=== PATIENT | female | born 1980 | race Caucasian/White ===

== ENCOUNTER 2016-08-25 18:17 | Emergency (ER) | payer OTHER ==
[~2016-08-25] VITALS: Ht 165.1 cm; Wt 84.0 kg
[~2016-08-25 18:17] MED LIST: ACET500C5 PO; BENZ100C70 PO; D-ME473S18 PO; IBUP800T25 PO; MECL25TA2 PO; NITR-58 PO; ONDA4TAB35 PO; PHEN-538 PO; SERT50TA6 PO; TYL500 PO
[2016-08-25 18:25] VITALS: Ht 165.1 cm; Wt 84.0 kg
[2016-08-25] MEDS ORDERED: KETOROLAC 30 MG INJ IM STA (20:36)
[2016-08-25 20:59] LABS: URINE BLOOD (Dip) POC Negative (NEGATIVE)
[2016-08-25] MEDS ORDERED: IBUP-1542 PO (21:35)
[2016-08-25] MEDS ORDERED: EXCED PO (21:35)
[2016-08-25] MEDS ORDERED: CLIN-73 PO (21:36)
--- NOTE | 2016-08-25 21:45 | ERD ---
ER Documentation Chief Complaint Date/Time DATE: 08/25/16 TIME: 21:38 Chief Complaint Complains of a headache x3 days ago HPI Patient is a 36-year-old female with a past medical history of migraines who presents to the emergency department with a headache 3 days. Patient states her current pain level is a 7 out of 10. Patient states that the pain is on the left side of her head radiating from her frontal to occipital region. Patient states that her headache has been getting gradually worse. She denies any sudden onset. Patient denies any nausea, vomiting, photophobia, blurry vision, loss of consciousness. Patient states that she took Tylenol 5 PM with some alleviation of symptoms. Patient denies any chest pain, shortness breath, diaphoresis, arm pain, leg pain. Patient also presenting with concerns of possible skin infection to her abdomen. Patient reports circular area of erythema. Area is tender to palpation. Patient denies any drainage or active bleeding. Patient denies any fever, chills. ROS All systems reviewed and are negative except as per history of present illness. Medications Home Meds Active Scripts Clindamycin Hcl* (Clindamycin Hcl*) 300 Mg Capsule, 300 MG PO Q8, #10 CAP Prov:RORY MCLAIN PA-C 08/25/16 Acetaminophen/Aspirin/Caffeine* (Excedrin*) 1 Tab Tab, 1 TAB PO BID, #20 TAB Prov:RORY MCLAIN PA-C 08/25/16 Ibuprofen* (Motrin*) 600 Mg Tab, 600 MG PO Q6, #30 TAB Prov:RORY MCLAIN PA-C 08/25/16 Phenazopyridine Hcl* (Pyridium*) 200 Mg Tab, 200 MG PO TID Y for URINARY PAIN, # 6 TAB Prov:NAHID CALZADA NP 05/29/16 Nitrofurantoin Monohyd Macrocr* (Macrobid*) 100 Mg Capsr, 100 MG PO BID for 7 Days, CAP Prov:NAHID CALZADA NP 05/29/16 Acetaminophen* (Tylenol*) 500 Mg Tab, 1000 MG PO Q8H Y for PAIN AND OR ELEVATED TEMP for 3 Days, TAB Prov:JAMI MASTERS 05/11/16 Dextromethorphan Hb-Promethazine Hcl (Promethazine DM Syrup) 473 Ml Syrup, 10 ML PO Q6H Y for COUGH, #4 OZ Prov:JAMI MASTERS 05/11/16 Benzonatate* (Tessalon Perle*) 100 Mg Capsule, 100 MG PO Q8H Y for COUGH for 3 Days, CAP Prov:JAMI MASTERS 05/11/16 Ibuprofen* (Motrin*) 800 Mg Tab, 800 MG PO Q6H Y for PAIN AND OR ELEVATED TEMP, #30 TAB Prov:ANTOINETTE US DO 04/24/16 Meclizine Hcl* (Antivert*) 25 Mg Tablet, 25 MG PO Q6H Y for dizziness, #20 TAB Prov:JAMI MASTERS 10/04/15 Acetaminophen* (Tylophen*) 500 Mg Capsule, 1 CAP PO Q6H Y for PAIN AND OR ELEVATED TEMP, #20 CAP Prov:JAMI MASTERS 10/04/15 Ondansetron Hcl* (Zofran* ODT) 4 mg -ODT Tab.disper, 4 MG PO Q6 Y for NAUSEA AND /OR VOMITING, #30 TAB Prov:LAYLA MARIE MD 08/09/15 Reported Medications Sertraline Hcl* (Sertraline Hcl*) 50 Mg Tablet, 50 MG PO DAILY, #30 TAB 08/09/15 Allergies Allergies: Coded Allergies: Penicillins (Verified Allergy, Unknown, 03/23/15) PMhx/Soc History of Surgery: Yes (hysterectomy) Anesthesia Reaction: No Hx Neurological Disorder: No Hx Cardiac Disorders: Yes (HTN) Hx Psychiatric Problems: No Hx Miscellaneous Medical Probl: Yes (Migraines) Hx Alcohol Use: No Hx Substance Use: No Hx Tobacco Use: No Physical Exam Vitals Vital Signs Date Time Temp Pulse Resp B/P Pulse Ox O2 Delivery O2 Flow Rate FiO2 08/25/16 21:56 97.9 74 18 122/72 100 Room Air 08/25/16 18:25 98.3 82 20 120/75 100 Physical Exam GENERAL: Well-developed, well-nourished female. Appears in no acute distress. HEAD: Normocephalic, atraumatic. No deformities or ecchymosis. Left frontal and occipital region tender to palpation EYE: Pupils equal, round, and reactive to light. EOMs intact. No conjunctival erythema. No scleral icterus. No eye discharge. ENT: External ear without any masses or tenderness. Auditory canals clear bilaterally. TM visualized bilaterally, non-erythematous, non-bulging. Nasal mucosa pink with no discharge. Oropharynx is pink without any tonsillar erythema or exudates. No uvula deviation. No kissing tonsils. NECK: Supple. No lymphadenopathy or thyromegaly. No meningismus. Range of motion of the neck. Tender to palpation of the bilateral trapezius muscles. LUNG: Clear to auscultation bilaterally. No rhonchi, wheezing, rales or coarse breath sounds. HEART: Regular rate and rhythm. No murmurs, rubs or gallops. ABDOMEN: Soft, nontender, and nondistended. Positive bowel sounds in all four quadrants. No rebound tenderness, no guarding. (-) McBurney's point tenderness. L CVA tenderness EXTREMITES: Equal pulses bilaterally. No peripheral clubbing, cyanosis or edema. No unilateral leg swelling. NEUROLOGIC:. No dysmetria on [id number] test. Steady gait. No pronator drift. Negative Brudzinski sign. Negative Kernig's sign SKIN: Normal color. Warm and dry. 2 cm circular abscess with surrounding erythema to right lower abdomen. +Swelling. Tender to palpation. No area of fluctuance. Results 24 hrs Laboratory Tests Test 08/25/16 21:00 Bedside Urine Blood Negative Bedside Urine Glucose (UA) Negative Bedside Urine Ketones (LAB) Negative Bedside Urine Leukocyte Esterase (L Negative Bedside Urine Nitrite (LAB) Negative Bedside Urine Protein (LAB) Negative Bedside Urine pH (LAB) 7.0 Current Medications Medications (Trade) Dose Ordered Sig/Teodoro Route PRN Reason Start Time Stop Time Status Last Admin Dose Admin Ketorolac Tromethamine (Toradol) 30 mg ONCE STAT IM 08/25/16 20:36 08/25/16 20:37 DC 08/25/16 20:57 Procedures/MDM MEDICAL DECISION MAKING: Patient is a 36-year-old female with PMHX of migraines who presents with a headache 3 days. Patient reported history of migraines. Vital signs were reviewed. Patient was afebrile. Patient is not hypoxic. Patient stated that current headache was similar to headaches in the past. Patient denied any fevers, neck stiffness, jaw claudication, visual changes or LOC. Full neurological exam was normal. Urine dip was negative for infection or hematuria. Low suspicion for UTI or pyelonephritis. Given these findings, the patients presentation is most consistent with this is migraine vs tension headache. Upon receiving Toradol IM here in the ED, patient reported improvement in pain. I have a much lower clinical concern for intracranial hemorrhage, meningitis, encephalitis, temporal arteritis, benign intracranial hypertension, intracranial mass, glaucoma, preeclampsia, sinusitis, cluster headache. Patient's physical exam findings also suggest abscess to right lower quadrant. The patient will be started antibiotics at this time. Warm compresses advised. Patient should return in 2 days for wound recheck and possible I&D at that time. PRESCRIPTIONS: Ibuprofen, Excedrin, clindamycin DISCHARGE: At this time, patient is stable for discharge and outpatient management. I have encouraged the patient to hydrate well. I have advised patient to return in 2 days for wound recheck and possible I&D at that time.. If she has headaches persist, patient may need to see a neurologist for further examinations and management. I have instructed the patient to promptly return to the ER at any time for any new or worsening symptoms including increased increased pain, fever , nausea, vomiting, numbness, neck stiffness, visual changes, weakness or LOC. The patient and/or family expressed understanding of and agreement with this plan. All questions were answered. Home care instructions were provided. Departure Diagnosis: Primary Impression: Headache Headache type: unspecified Headache chronicity pattern: unspecified pattern Intractability: not intractable Qualified Code: R51 - Nonintractable headache, unspecified chronicity pattern, unspecified headache type Additional Impression: Abscess Condition: Stable Patient Instructions: Abscess, Antiobiotic Treatment Only, Headache, Unspecified Additional Instructions: Follow-up in 2 days for wound recheck. May need an incision and drainage at that time. Return sooner for any worsening symptoms including fever, chills, nausea, vomiting, redness, warmth, swelling or severe pain. Warm compresses advised to affected area. Call your primary care doctor TOMORROW for an appointment during the next 1-2 days.See the doctor sooner or return here if your condition worsens before your appointment time. RORY MCLAIN PA-C Aug 25, 2016 21:45
[2016-08-25 21:56] VITALS: BP 122/72; PULSE 74; RESP 18; TEMP 97.9
== END 2016-08-25 21:56 | disposition home or self-care (01) ==
LOC: FTE 18:17
DX: R51 Headache (principal); L02.211 Cutaneous abscess of abdominal wall; I10 Essential (primary) hypertension; J45.909 Unspecified asthma, uncomplicated
CPT/HCPCS: 81003; 96372; J1885; Z7502

== ENCOUNTER 2016-12-14 14:32 | Emergency (ER) | payer OTHER ==
[~2016-12-14] VITALS: Ht 162.6 cm; Wt 83.0 kg
[~2016-12-14 14:32] MED LIST changes: +CLIN-73 PO; +EXCED PO; +IBUP-1542 PO
[2016-12-14 14:35] VITALS: Ht 162.6 cm; Wt 83.0 kg
[2016-12-14] MEDS ORDERED: ONDANSETRON (ODT) 4 MG TAB ODT STA (16:13)
[2016-12-14] MEDS ORDERED: ACETAMINOPHEN 325 MG TAB PO ONE (16:30)
[2016-12-14] MEDS ORDERED: MECLIZINE 12.5 MG TAB PO ONE (16:30)
[2016-12-14] MEDS ORDERED: MECL12.574 PO (16:55)
[2016-12-14] MEDS ORDERED: ONDA4TAB14 PO (16:55)
--- NOTE | 2016-12-14 16:58 | ERD ---
ER Documentation Chief Complaint Date/Time DATE: 12/14/16 TIME: 16:58 Chief Complaint THOMPSON, dizziness, nausea started today HPI Patient is a 36-year-old female with asthma presents with multiple complaints. She is complaining of nausea and dizziness. She also has a pain in her throat and pain in the left ear. The symptoms have been there for the past 2 days. The pain is constant. She tried ibuprofen. She denies fevers. She does not currently have a primary doctor. Upon review of old medical records the patient has multiple visits to the ER for various complaints. ROS All systems reviewed and are negative except as per history of present illness. Medications Home Meds Active Scripts Ondansetron (Ondansetron Odt) 4 Mg Tab.rapdis, 4 MG PO Q6H Y for NAUSEA AND/OR VOMITING, #10 TAB Prov:LAYLA MARIE MD 12/14/16 Meclizine Hcl* (Antivert*) 12.5 Mg Tab, 12.5 MG PO Q6H Y for DIZZINESS, #20 TAB Prov:LAYLA MARIE MD 12/14/16 Clindamycin Hcl* (Clindamycin Hcl*) 300 Mg Capsule, 300 MG PO Q8, #10 CAP Prov:RORY MCLAIN PA-C 08/25/16 Acetaminophen/Aspirin/Caffeine* (Excedrin*) 1 Tab Tab, 1 TAB PO BID, #20 TAB Prov:RORY MCLAIN PA-C 08/25/16 Ibuprofen* (Motrin*) 600 Mg Tab, 600 MG PO Q6, #30 TAB Prov:RORY MCLAIN PA-C 08/25/16 Phenazopyridine Hcl* (Pyridium*) 200 Mg Tab, 200 MG PO TID Y for URINARY PAIN, # 6 TAB Prov:NAHID CALZADA NP 05/29/16 Nitrofurantoin Monohyd Macrocr* (Macrobid*) 100 Mg Capsr, 100 MG PO BID for 7 Days, CAP Prov:NAHID CALZADA NP 05/29/16 Acetaminophen* (Tylenol*) 500 Mg Tab, 1000 MG PO Q8H Y for PAIN AND OR ELEVATED TEMP for 3 Days, TAB Prov:JAMI MASTERS 05/11/16 Dextromethorphan Hb-Promethazine Hcl (Promethazine DM Syrup) 473 Ml Syrup, 10 ML PO Q6H Y for COUGH, #4 OZ Prov:JAMI MASTERS 05/11/16 Benzonatate* (Tessalon Perle*) 100 Mg Capsule, 100 MG PO Q8H Y for COUGH for 3 Days, CAP Prov:JAMI MASTERS 05/11/16 Ibuprofen* (Motrin*) 800 Mg Tab, 800 MG PO Q6H Y for PAIN AND OR ELEVATED TEMP, #30 TAB Prov:MAGENJOANDANETTE LOPEZ 04/24/16 Meclizine Hcl* (Antivert*) 25 Mg Tablet, 25 MG PO Q6H Y for dizziness, #20 TAB Prov:JAMI MASTERS 10/04/15 Acetaminophen* (Tylophen*) 500 Mg Capsule, 1 CAP PO Q6H Y for PAIN AND OR ELEVATED TEMP, #20 CAP Prov:JAMI MASTERS 10/04/15 Ondansetron Hcl* (Zofran* ODT) 4 mg -ODT Tab.disper, 4 MG PO Q6 Y for NAUSEA AND /OR VOMITING, #30 TAB Prov:LAYLA MARIE MD 08/09/15 Reported Medications Sertraline Hcl* (Sertraline Hcl*) 50 Mg Tablet, 50 MG PO DAILY, #30 TAB 08/09/15 Allergies Allergies: Coded Allergies: Penicillins (Verified Allergy, Unknown, 03/23/15) PMhx/Soc History of Surgery: Yes (hysterectomy) Anesthesia Reaction: No Hx Neurological Disorder: No Hx Cardiac Disorders: Yes (HTN) Hx Psychiatric Problems: No Hx Miscellaneous Medical Probl: Yes (Migraines) Hx Alcohol Use: No Hx Substance Use: No Hx Tobacco Use: No Smoking Status: Never smoker FmHx Family History: No diabetes Physical Exam Vitals Vital Signs Date Time Temp Pulse Resp B/P Pulse Ox O2 Delivery O2 Flow Rate FiO2 12/14/16 14:35 98.7 83 15 115/57 97 Physical Exam Const: Mild distress Head: Atraumatic Eyes: Normal Conjunctiva ENT: No signs of obvious pharyngitis, peritonsillar abscess, or stridor over the neck, no signs of otitis media Neck: Full range of motion..~ No meningismus. Resp: Clear to auscultation bilaterally Cardio: Regular rate and rhythm, no murmurs Abd: Soft, non tender, non distended. Normal bowel sounds Skin: No petechiae or rashes Back: No midline or flank tenderness Ext: No cyanosis, or edema Neur: Awake and alert, cranial nerves II through XII intact, no slurred speech Psych: Depressed affect Results 24 hrs Current Medications Medications (Trade) Dose Ordered Sig/Teodoro Route PRN Reason Start Time Stop Time Status Last Admin Dose Admin Acetaminophen (Tylenol Tab) 650 mg ONCE ONCE PO 12/14/16 16:30 12/14/16 16:31 DC 12/14/16 16:29 Ondansetron HCl (Zofran Odt) 4 mg ONCE STAT ODT 12/14/16 16:13 12/14/16 16:14 DC 12/14/16 16:29 Meclizine HCl (Antivert) 25 mg ONCE ONCE PO 12/14/16 16:30 12/14/16 16:31 DC 12/14/16 16:28 Procedures/MDM EKG read by me: Rate/Rhythm: Regular rate and rhythm at a normal rate Intervals: Normal Impression: No evidence of ischemia or arrhythmia test is negative. Patient is a 36-year-old female presents with various complaints. At this point I see no signs of obvious serous bacterial infection. I doubt stroke or intracranial mass or hemorrhage. I believe the risk of doing a CT scan of the brain outweigh the benefits. There is no sign of ischemia on the EKG I doubt acute coronary syndrome. The patient was given Tylenol and meclizine as well as Zofran. A prescription for meclizine and Zofran for systematic relief will be given. I told the patient that she needs to obtain a primary doctor as she has multiple visits to the ER for various complaints. She should follow-up the local clinics within 24-48 hours for reevaluation. Departure Diagnosis: Primary Impression: Headache Headache type: unspecified Headache chronicity pattern: acute headache Intractability: not intractable Qualified Code: R51 - Acute nonintractable headache, unspecified headache type Additional Impressions: Dizziness Nausea Condition: Fair Patient Instructions: Self-Care for Headaches, Nausea, Dizziness, Unk Cause Additional Instructions: Llame al doctor MAANA y victor hugo pablito MELANIE PARA DENTRO DE 1-2 PURDY.Dgale a la secretaria que nosotros le instruimos hacer esta melanie.Avise o llame si camacho condicin se empeora antes de la melanie. Regresa aqui si peor o no mejor. LAYLA MARIE MD December 14, 2016 16:58
== END 2016-12-14 17:11 | disposition home or self-care (01) ==
LOC: FTE 14:32
DX: R51 Headache (principal); R42 Dizziness and giddiness; R11.0 Nausea; I10 Essential (primary) hypertension; J45.909 Unspecified asthma, uncomplicated
CPT/HCPCS: 93005; Z7502; Z7610

== ENCOUNTER 2017-04-03 09:07 | Emergency (ER) | payer OTHER ==
[~2017-04-03] VITALS: Wt 83.0 kg
[~2017-04-03 09:07] MED LIST changes: +MECL12.574 PO; +ONDA4TAB14 PO
[2017-04-03] MEDS ORDERED: SOD CHLORIDE 0.9% 1,000 ML IV STA (09:55)
[2017-04-03] MEDS ORDERED: KETOROLAC 15 MG INJ IV STA (09:55)
[2017-04-03] MEDS ORDERED: ONDANSETRON 4 MG INJ IV STA (09:55)
[2017-04-03] MEDS ORDERED: morphine 4 MG/ML VIAL IV STA (09:55)
[2017-04-03 10:44] LABS: BASOPHILS % 0.4 % (0.0-2.0); EOSINOPHILS # 0.3 10^3/ul (0.0-0.5); EOSINOPHILS % 3.7 % (0.0-7.0); HEMATOCRIT 43.6 % (37.0-47.0); HEMOGLOBIN 14.5 g/dl (12.0-16.0); LYMPHOCYTES # 1.9 10^3/ul (0.8-2.9); LYMPHOCYTES % 21.2 % (15.0-51.0); MEAN CORPUSCULAR HEMOGLOBIN 28.9 pg (29.0-33.0); MEAN CORPUSCULAR HGB CONC 33.3 g/dl (32.0-37.0); MEAN PLATELET VOLUME 10.7 fl (7.4-10.4); MONOCYTE # 0.6 10^3/ul (0.3-0.9); NEUTROPHIL # 6.2 10^3/ul (1.6-7.5); NEUTROPHILS % 68.4 % (39.0-77.0); PLATELET COUNT 197 10^3/UL (140-415); RED BLOOD COUNT 5.01 10^6/ul (4.20-5.40); RED CELL DISTRIBUTION WIDTH 12.9 % (11.5-14.5); WHITE BLOOD COUNT 9.1 10^3/ul (4.8-10.8)
[2017-04-03 11:04] LABS: ADD UMIC NO; UR ASCORBIC ACID NEGATIVE (NEGATIVE); UR BILIRUBIN (Dip) NEGATIVE (NEGATIVE); UR BLOOD (Dip) NEGATIVE (NEGATIVE); UR CLARITY SLIGHTLY CLOUDY (CLEAR); UR COLOR YELLOW (YELLOW); UR GLUCOSE (Dip) NEGATIVE (NEGATIVE); UR KETONES (Dip) NEGATIVE (NEGATIVE); UR LEUKOCYTE ESTERASE (Dip) NEGATIVE Leu/ul (NEGATIVE); UR MUCUS FEW /HPF (NONE SEEN); UR NITRITE (Dip) NEGATIVE (NEGATIVE); UR RBC 2 /HPF (0-5); UR SPECIFIC GRAVITY (Dip) 1.018 (1.003-1.030); UR SQUAMOUS EPITHELIAL CELL FEW /HPF (FEW); UR TOTAL PROTEIN (Dip) NEGATIVE (NEGATIVE); UR UROBILINOGEN (Dip) NEGATIVE (NEGATIVE)
--- NOTE | 2017-04-03 11:20 | ERD ---
ER Documentation Chief Complaint Date/Time DATE: 04/03/17 TIME: 11:19 Chief Complaint ap with vomiting and diarrhea x 3 days, flu HPI 37-year-old female presents the emergency department complaining abdominal pain , mostly in the left quadrant rating it severe with associated nonbilious nonbloody vomiting and diarrhea for the past 3 days. Patient admits to having fever. She states that she has tried Zofran without any relief. ROS All systems reviewed and are negative except as per history of present illness. Medications Home Meds Active Scripts Metoclopramide* (Reglan*) 10 Mg Tablet, 10 MG PO Q6 Y for NAUSEA AND/OR VOMITING , #10 TAB Prov:LUZ TURNER PA-C 04/03/17 Acetaminophen* (Acetaminophen*) 650 Mg Tablet, 650 MG PO Q6H Y for PAIN AND OR ELEVATED TEMP, #30 TAB Prov:LUZ TURNER PA-C 04/03/17 Ibuprofen* (Motrin*) 600 Mg Tab, 600 MG PO Q6H Y for PAIN AND OR ELEVATED TEMP, #30 TAB Prov:LUZ TURNER PA-C 04/03/17 Ondansetron (Ondansetron Odt) 4 Mg Tab.rapdis, 4 MG PO Q6H Y for NAUSEA AND/OR VOMITING, #10 TAB Prov:LAYLA MARIE MD 12/14/16 Meclizine Hcl* (Antivert*) 12.5 Mg Tab, 12.5 MG PO Q6H Y for DIZZINESS, #20 TAB Prov:LAYLA MARIE MD 12/14/16 Clindamycin Hcl* (Clindamycin Hcl*) 300 Mg Capsule, 300 MG PO Q8, #10 CAP Prov:RORY MCLAIN PA-C 08/25/16 Acetaminophen/Aspirin/Caffeine* (Excedrin*) 1 Tab Tab, 1 TAB PO BID, #20 TAB Prov:RORY MCLAIN PA-C 08/25/16 Ibuprofen* (Motrin*) 600 Mg Tab, 600 MG PO Q6, #30 TAB Prov:RORY MCLAIN PA-C 08/25/16 Phenazopyridine Hcl* (Pyridium*) 200 Mg Tab, 200 MG PO TID Y for URINARY PAIN, # 6 TAB Prov:NAHID CALZADA NP 05/29/16 Nitrofurantoin Monohyd Macrocr* (Macrobid*) 100 Mg Capsr, 100 MG PO BID for 7 Days, CAP Prov:NAHID CALZADA NP 05/29/16 Acetaminophen* (Tylenol*) 500 Mg Tab, 1000 MG PO Q8H Y for PAIN AND OR ELEVATED TEMP for 3 Days, TAB Prov:SONAM,JAMI C 05/11/16 Dextromethorphan Hb-Promethazine Hcl (Promethazine DM Syrup) 473 Ml Syrup, 10 ML PO Q6H Y for COUGH, #4 OZ Prov:JAMI MASTERS Kay 05/11/16 Benzonatate* (Tessalon Perle*) 100 Mg Capsule, 100 MG PO Q8H Y for COUGH for 3 Days, CAP Prov:JAMI MASTERS Kay 05/11/16 Ibuprofen* (Motrin*) 800 Mg Tab, 800 MG PO Q6H Y for PAIN AND OR ELEVATED TEMP, #30 TAB Prov:ANTOINETTE US DO 04/24/16 Meclizine Hcl* (Antivert*) 25 Mg Tablet, 25 MG PO Q6H Y for dizziness, #20 TAB Prov:JAMI MASTERS Kay 10/04/15 Acetaminophen* (Tylophen*) 500 Mg Capsule, 1 CAP PO Q6H Y for PAIN AND OR ELEVATED TEMP, #20 CAP Prov:JAMI MASTERS Kay 10/04/15 Ondansetron Hcl* (Zofran* ODT) 4 mg -ODT Tab.disper, 4 MG PO Q6 Y for NAUSEA AND /OR VOMITING, #30 TAB Prov:LAYLA MARIE MD 08/09/15 Reported Medications Sertraline Hcl* (Sertraline Hcl*) 50 Mg Tablet, 50 MG PO DAILY, #30 TAB 08/09/15 Allergies Allergies: Coded Allergies: Penicillins (Verified Allergy, Unknown, 03/23/15) PMhx/Soc History of Surgery: Yes (hysterectomy) Anesthesia Reaction: No Hx Neurological Disorder: No Hx Cardiac Disorders: Yes (HTN) Hx Psychiatric Problems: No Hx Miscellaneous Medical Probl: Yes (Migraines) Hx Alcohol Use: No Hx Substance Use: No Hx Tobacco Use: No Smoking Status: Never smoker Physical Exam Vitals Vital Signs Date Time Temp Pulse Resp B/P Pulse Ox O2 Delivery O2 Flow Rate FiO2 04/03/17 09:08 98.7 94 18 131/60 99 Physical Exam Const: [] Head: Atraumatic Eyes: Normal Conjunctiva ENT: Normal External Ears, Nose and Mouth. Neck: Full range of motion..~ No meningismus. Resp: Clear to auscultation bilaterally Cardio: Regular rate and rhythm, no murmurs Abd: Soft, Tender palpation all quadrants, left greater than rightnon distended. Normal bowel sounds Skin: No petechiae or rashes Back: No midline or flank tenderness Ext: No cyanosis, or edema Neur: Awake and alert Psych: Normal Mood and Affect Result Diagram: 04/03/17 1039 04/03/17 1039 Results 24 hrs Laboratory Tests Test 04/03/17 10:30 04/03/17 10:39 Urine Color YELLOW Urine Clarity SLIGHTLY CLOUDY Urine pH 7.0 Urine Specific [place] 1.018 Urine Ketones NEGATIVEmg/dL Urine Nitrite NEGATIVEmg/dL Urine Bilirubin NEGATIVEmg/dL Urine Urobilinogen NEGATIVEmg/dL Urine Leukocyte Esterase NEGATIVELeu/ul Urine Microscopic RBC 2/HPF Urine Microscopic WBC 2/HPF Urine Squamous Epithelial Cells FEW/HPF Urine Mucus FEW/HPF Urine Hemoglobin NEGATIVEmg/dL Urine Glucose NEGATIVEmg/dL Urine Total Protein NEGATIVEmg/dl White Blood Count 9.110^3/ul Red Blood Count 5.0110^6/ul Hemoglobin 14.5g/dl Hematocrit 43.6% Mean Corpuscular Volume 87.0fl Mean Corpuscular Hemoglobin 28.9pg Mean Corpuscular Hemoglobin Concent 33.3g/dl Red Cell Distribution Width 12.9% Platelet Count 55658^3/UL Mean Platelet Volume 10.7fl Neutrophils % 68.4% Lymphocytes % 21.2% Monocytes % 6.0% Eosinophils % 3.7% Basophils % 0.4% Nucleated Red Blood Cells % 0.0/100WBC Neutrophils # 6.210^3/ul Lymphocytes # 1.910^3/ul Monocytes # 0.610^3/ul Eosinophils # 0.310^3/ul Basophils # 0.010^3/ul Nucleated Red Blood Cells # 0.010^3/ul Sodium Level 137mmol/L Potassium Level 4.1mmol/L Chloride Level 106mmol/L Carbon Dioxide Level 27mmol/L Anion Gap 8 Blood Urea Nitrogen 13mg/dl Creatinine 0.55mg/dl Glucose Level 86mg/dl Calcium Level 9.0mg/dl Total Bilirubin 0.2mg/dl Direct Bilirubin 0.00mg/dl Indirect Bilirubin 0.2mg/dl Aspartate Amino Transf (AST/SGOT) 28IU/L Alanine Aminotransferase (ALT/SGPT) 43IU/L Alkaline Phosphatase 90IU/L Total Protein 6.5g/dl Albumin 3.7g/dl Globulin 2.80g/dl Albumin/Globulin Ratio 1.32 Lipase 74U/L Current Medications Medications (Trade) Dose Ordered Sig/Teodoro Route PRN Reason Start Time Stop Time Status Last Admin Dose Admin Sodium Chloride (NS) 1,000 ml @ 1,000 mls/hr Q1H STAT IV 04/03/17 09:55 04/03/17 10:54 DC 04/03/17 10:28 Morphine Sulfate (morphine) 4 mg ONCE STAT IV 04/03/17 09:55 04/03/17 09:57 DC 04/03/17 10:27 Ondansetron HCl (Zofran Inj) 4 mg ONCE STAT IV 04/03/17 09:55 04/03/17 09:57 DC 04/03/17 10:27 Ketorolac Tromethamine (Toradol) 15 mg ONCE STAT IV 04/03/17 09:55 04/03/17 09:57 DC 04/03/17 10:25 Procedures/MDM 37-year-old female presents to the emergency room with abdominal pain, nausea, vomiting, diarrhea and likely a viral syndrome. Patient appears well, nontoxic appearing. No evidence of surgical abdomen. Lab work was done did not show any leukocytosis or anemia. No electrolyte, renal or liver abnormalities. Stable to be discharged home to follow-up with primary care physician. Prescription for Tylenol and Reglan was provided. Return precautions were given Departure Diagnosis: Primary Impression: Abdominal pain Condition: Stable LUZ TURNER PA-C Apr 03, 2017 11:20
[2017-04-03 11:28] LABS: ALBUMIN 3.7 g/dl (3.3-4.9); ALBUMIN/GLOBULIN RATIO 1.32; BILIRUBIN,INDIRECT 0.2 mg/dl (0-1.1); BILIRUBIN,TOTAL 0.2 mg/dl (0.2-1.3); CREATININE 0.55 mg/dl (0.44-1.00); POTASSIUM 4.1 mmol/L (3.5-5.1); TOTAL PROTEIN 6.5 g/dl (6.1-8.1)
--- NOTE | 2017-04-03 12:03 | RADRPT ---
PROCEDURE: CT Abdomen and Pelvis without contrast. CLINICAL INDICATION: Flank pain. Nausea and vomiting. TECHNIQUE: CT scan of the abdomen and pelvis without contrast was performed on a multi-slice CT sc bimal without intravenous contrast. Coronal and sagittal reformatted images were obtained from the axial source images. Images were reviewed on a high-resolution PACS workstation. One or more of the following does reduction techniques were used: Automated exposure control; adjustment of the mA an d/or kV according to patient size; use of the aorta of reconstruction technique. The total exam CTD I equals 19.1 mGy and the total exam DLP equals 1176.6 mGy-cm. COMPARISON: CT abdomen pelvis 04/24/2016 FINDINGS: The lung bases are clear. Heart size is normal, and there is no evidence of pericardial thickening or effusion. There is diffuse decreased attenuation of the hepatic parenchyma consistent with fatty infiltration. There is patchy areas of pericholecystic sparing. The liver, spleen, and pancreas are otherwise nor mal. The gallbladder is normal. The adrenal glands are normal. The kidneys without renal calculus or hydronephrosis. The aorta is of normal caliber. There is no retroperitoneal lymph node enlargment. There is no evidence of large or small bowel obstruction. A normal appendix is not identified, howev er, there is no secondary evidence of acute appendicitis. No free fluid or fluid collections are i dentified. No inflammatory changes are seen. The uterus is present. No enlarged pelvic sidewall lymph nodes are seen. The bladder is decompresse d and collapsed. No free fluid is identified. The inguinal regions are unremarkable. The bones are intact. IMPRESSION: 1. No CT evidence of acute intra-abdominal or pelvic process. 2. Fatty infiltration of the liver. RPTAT: KK .Case Monson MD, MD Date Time Electronically viewed and signed by .Case Monson MD, MD on 04/03/2017 12:03 .B/
[2017-04-03] MEDS ORDERED: IBUP-1542 PO (12:10)
[2017-04-03] MEDS ORDERED: ACET-2047 PO (12:10)
[2017-04-03] MEDS ORDERED: METO10TA92 PO (12:10)
[2017-04-03 12:33] VITALS: BP 123/66; PULSE 78; RESP 18; TEMP 97.9
== END 2017-04-03 12:34 | disposition home or self-care (01) ==
LOC: FTE 09:07
DX: R10.84 Generalized abdominal pain (principal); I10 Essential (primary) hypertension; R11.2 Nausea with vomiting, unspecified
CPT/HCPCS: 36415; 74176; 80053; 81001; 83690; 85025; 96374; 96375; J1885; J2270; J2405; J7030; Z7502; 81003

== ENCOUNTER 2017-10-28 17:32 | Emergency (ER) | END 2017-10-28 19:00 | disposition home or self-care (01) ==

== ENCOUNTER 2018-02-12 17:49 | Emergency (ER) | END 2018-02-12 20:38 | disposition home or self-care (01) ==

== ENCOUNTER 2018-09-10 10:03 | Emergency (ER) | payer OTHER ==
[~2018-09-10] VITALS: Ht 167.6 cm; Wt 86.3 kg
[~2018-09-10 10:03] MED LIST changes: +ACET-2047 PO; +AZIT250T PO; +BENZ-6 PO; -BENZ100C70 PO; +CIPR500T4 PO; -CLIN-73 PO; +CLIN300C10 PO; -IBUP800T25 PO; +IBUP800T48 PO; +METO10TA92 PO; +PRED20TA PO
[2018-09-10 10:11] VITALS: BP 130/76; PULSE 80; RESP 20; Ht 167.6 cm; Wt 86.3 kg
[2018-09-10] MEDS ORDERED: IBUP-1542 PO (11:25)
[2018-09-10] MEDS ORDERED: METH750T93 PO (11:25)
[2018-09-10] MEDS ORDERED: ACET-141 PO (11:25)
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
== END 2018-09-10 11:53 | disposition home or self-care (01) ==
LOC: FTE 10:03
DX: M54.5 Low back pain (principal); I10 Essential (primary) hypertension
CPT/HCPCS: 99283